=== PATIENT | female | born 1930 | race Caucasian/White ===

== ENCOUNTER 2016-07-09 18:47 | Inpatient (IN) | payer MEDICARE, OTHER ==
--- NOTE | ~2016-07-09 | DS ---
Discharge Summary [facility] [address] [place]. [address] NAME: LIZZETTE DE LA TORRE : [birth year] STATUS : DIS IN PAT#: [id number] AGE: 85 ADM/REG DATE : 07/09/16 MR#: [id number] REPORT SERV DATE: 07/12/16 DICTATED BY: EVER HERNÁNDEZ DATE: 07/11/16 REPORT STATUS : Draft TRANSCRIBED BY: MODL DATE: 07/11/16 ADMISSION DATE: 07/09/2016 DISCHARGE DATE: 07/11/2016 DISCHARGE DIAGNOSES: 1. Severe ileus, resolved. 2. Advanced dementia. 3. Elevated troponin, likely a type 2 phenomenon. CONSULTS: 1. Cardiology. 2. GI. 3. General Surgery. PROCEDURES: None. HOSPITAL COURSE: This is an 85-year-old lady with history of dementia who was presented to the hospital with severe ileus. For details, please refer to H and P by Dr. Hernandez. In summary, the patient was admitted for control of her abdominal pain and bloating. The patient had actually come from the [facility], and prior to coming to the ER, the patient was given multiple bowel regimen. Shortly after she was admitted to the hospital the patient actually had a bowel movement and with that, the patient had relief of her symptoms. The patient was slowly started on diet which she tolerated well. However, upon further investigation, the patient has quite advanced dementia and the ileus is something that she has chronically. The patient's family actually decided to take the patient home with hospice care which I thought was very reasonable. The patient is thus being discharged home with hospice. DISCHARGE MEDICATIONS: To be reconciled by hospice services. DISPOSITION: Home with hospice. Total of 25 minutes spent in coordinating this patient's discharge today. JOCELYN/CARROL Ever Hernández MD / [id number] CC: MD Radha Jensen M.D.
--- NOTE | ~2016-07-09 | CN ---
Consultation Report [facility] [address] [place]. [address] NAME: LIZZETTE DE LA TORRE : [birth year] STATUS : ADM IN [facility]#: [id number] AGE: 85 ADM/REG DATE : 07/09/16 MR#: [id number] REPORT SERV DATE: 07/10/16 DICTATED BY: SITA PRINCE DATE: 07/10/16 REPORT STATUS : Draft TRANSCRIBED BY: MODL DATE: 07/10/16 DATE OF CONSULTATION: This consultation is for Dr. Christian Segundo, and I am covering for him. HISTORY OF PRESENT ILLNESS: The patient is an 85-year-old woman who presents to the hospital with abdominal pain, abdominal distention with no bowel movement for a number of days. In the emergency room, she had a CT scan which showed a markedly dilated colon with the cecum measuring approximately 10 cm. Her abdomen was distended and extremely tight. She denied having any black stools or bright red blood in the stool. She denied having any vomiting, but did have some nausea. No hematemesis or coffee-grounds emesis. She denies any pyrosis or indigestion. Last night, she was started on neostigmine 0.5 mg subcutaneously twice a day, and since then, she has had two to three bowel movements, and her KUB this morning showed the Colon was much less dilated and was much improved. She has recently been in [place] for the same problem and was given some medicines there, we are not sure of which and she had bowel movements, but then when she was discharged, she has not had any bowel movement since then. She was seeing Dr. Enzo Reyes, however, she does not want to see him again, has seen Dr. Segundo once in the past during rounds on the weekend and liked him and wants to see him again and wants him to be her GI doctor. PAST MEDICAL HISTORY: Pertinent for coronary artery disease, status post stent placed in the 1998, hypertension, multiple episodes of ileus, and dementia. MEDICATIONS: Her medicines at home were Fosamax, Xanax 0.5 mg at bedtime, aspirin a day, Lipitor, diltiazem, Lasix, isosorbide, levothyroxine, lisinopril, Roxicodone, MiraLAX, potassium, and propranolol for an essential tremor. Those are her home medicines. Other medicines are as outlined on her MAR. ALLERGIES: SHE IS ALLERGIC TO SULFA AND ATIVAN. THE ATIVAN MAKES HER AGITATED AND WILD RATHER THAN SEDATED. SHE QUIT SMOKING TWO YEARS AGO. DOES NOT DRINK ANY ALCOHOL. FAMILY HISTORY: Pertinent for a mother with colon cancer. Her last colonoscopy was one to two years ago by Dr. Enzo Reyes. REVIEW OF SYSTEMS: Otherwise, unremarkable. PHYSICAL EXAMINATION: GENERAL: She is a well-developed, well-nourished woman, in no acute distress. VITAL SIGNS: Her temperature is 97.5, pulse 62, respirations 16, blood pressure is 111/53. HEENT: Unremarkable. LUNGS: Clear. HEART: Regular rate and rhythm. ABDOMEN: Showed normoactive bowel sounds and soft, with distention, soft and mildly tender diffusely. Consultation Report [address] [place]. [address] NAME: LIZZETTE DE LA TORRE : [birth year] STATUS : ADM IN [facility]#: [id number] AGE: 85 ADM/REG DATE : 07/09/16 MR#: [id number] REPORT SERV DATE: 07/10/16 DICTATED BY: SITA PRINCE DATE: 07/10/16 REPORT STATUS : Draft TRANSCRIBED BY: CARROL DATE: 07/10/16 LABORATORY DATA: Shows a white count of 10.6, hemoglobin of 12.3, hematocrit of 37.7, MCV 19.8, RDW 14.0, platelet count 251,000. Her PTT is 29.7, ProTime 14.1 with an INR of 1.1. Her sodium was 138, potassium of 3.9, chloride 98, CO2 of 29, BUN 13, creatinine 0.64, glucose 114, calcium 8.7, magnesium is 2.5. Total protein 5.8, albumin is 2.5, total bilirubin 0.4, alkaline phosphatase 64, ALT 30, AST 38. CPK was 36, CK-MB was 2.1. Troponin was 0.42. TSH was 4.63, normal high being 3.74. A CT scan done yesterday in the emergency room showed a prominent distention of the cecum measuring up to 10 cm. The rest of the colon is distended with gas and a large amount of stool. There was evidence of previous colon surgery in the rectosigmoid area, mild distention of the gallbladder without signs of acute cholecystitis, cystitis distended urinary bladder, atherosclerotic vascular disease, and a mild prominence of the biliary tree. KUB this morning showed residual contrast in the urinary ducts from the CT scan. No free air. No areas of significant mass effect and no significant bowel gas abnormalities. IMPRESSION: This is an 85-year-old woman who has an ileus which seems to be a chronic problem which is better since starting the neostigmine last night. We will continue the neostigmine. We will also start some Amitiza as she is taking some Roxicodone and other pain medicines and that may be giving her an opioid induced constipation as well as a chronic idiopathic constipation with ileus as noted as she has had multiple episodes of this. I agree with starting clear liquids and Dr. Segundo will return to see her in the morning. I want to thank you for allowing us to participate in the care of this nice lady. We look forward to work with you in the future. RS/MODL Sita Prince M.D. / [id number] CC: MD Radha Jensen M.D. David Collins, M.D.
--- NOTE | ~2016-07-09 | HP ---
History And Physical [place] [id number] [facility] [place]. [address] NAME: LIZZETTE DE LA TORRE : [birth year] STATUS : ADM IN [facility]#: [id number] AGE: 85 ADM/REG DATE : 07/09/16 MR#: [id number] REPORT SERV DATE: 07/10/16 DICTATED BY: SACHA BOCANEGRA DATE: 07/10/16 REPORT STATUS : Draft TRANSCRIBED BY: MODL DATE: 07/10/16 DATE OF ADMISSION: 07/09/2016 CHIEF COMPLAINT: This is an 85-year-old female presenting with abdominal pain and bloating. HISTORY OF PRESENT ILLNESS: The patient's history was obtained through careful interview with the patient and daughter coupled with review of [facility] medical records. The patient about 10 days ago began to develop extreme abdominal discomfort related to progressive abdominal distention. She was hospitalized just this last week at [facility], where she spent Monday through Monday hospitalized for constipation and "ileus." She had enema and bowel treatments and eventually had regular bowel movements. She was just discharged on the day prior to this admission, but continued to have abdominal pain at home. She has been "screaming out" in pain according to the family. A cramping, diffuse abdominal discomfort was noted with extreme abdominal distention. She has had nausea, 1 episode of vomiting. She has had burning with her urine and frequent incontinence that is new on onset. Over the last week, while at [facility], she had a low O2 sat, but no shortness of breath. There was also concern about a "heart attack" and we were all wondering if she had elevated troponins at [facility] (similar to what we see here). When she was discharged from the hospital yesterday, she was so weak that she apparently could not walk without assistance, which is a new problem over this last week. REVIEW OF SYSTEMS: Otherwise, a 14-point review of systems was obtained and was negative. PAST MEDICAL HISTORY: 1. Coronary artery disease, status post stent placement in 1998. 2. Dementia. 3. Hypertension. 4. Osteoarthritis particularly of the spine, seen by Dr. Veloz. 5. T12 compression fracture. 6. Severe ileus since 2015. 7. Negative echocardiogram in 2013. PAST SURGICAL HISTORY: 1. Hysterectomy. 2. Colon surgery more than 10 years ago. ALLERGIES: SULFA, ATIVAN. History And Physical [address] [place]. [address] NAME: LIZZETTE DE LA TORRE : [birth year] STATUS : ADM IN PAT#: [id number] AGE: 85 ADM/REG DATE : 07/09/16 MR#: [id number] REPORT SERV DATE: 07/10/16 DICTATED BY: SACHA BOCANEGRA DATE: 07/10/16 REPORT STATUS : Draft TRANSCRIBED BY: CARROL DATE: 07/10/16 SOCIAL HISTORY: Quit smoking about two years ago. No alcohol use. Has been living at [facility] in [facility]. She is a , has three children, two grandchildren, two great-grandchildren. FAMILY HISTORY: Alzheimer dementia and heart disease. CURRENT MEDICATIONS: Include Fosamax weekly, Xanax 0.5 mg p.o. at bedtime, aspirin 81 mg p.o. daily, Lipitor 20 mg p.o. daily, diltiazem extended release 300 mg p.o. daily, Lasix 20 mg p.o. daily, isosorbide mononitrate 30 mg p.o. daily, levothyroxine 88 mcg p.o. daily, lisinopril 10 mg p.o. daily, fish oil, Roxicodone 10 mg p.o. q.6 hours p.r.n., MiraLAX packet twice a day, potassium 10 mEq p.o. daily, propranolol 20 mg p.o. t.i.d. PHYSICAL EXAMINATION: VITAL SIGNS: Temperature 97.7, pulse 74, blood pressure 160/70, respiratory rate 16, O2 saturation 96% on room air. GENERAL: A pleasant, cooperative female. She is not in any particular distress at the time of my dictation, just uncomfortable. HEENT: Pupils equal, round, and reactive to light. No conjunctival pallor. No scleral icterus. Nares are patent. Oropharynx is clear of obstruction. Mildly dry mucous membranes. NECK: Trachea midline. No thyromegaly. LYMPH: No cervical lymphadenopathy. No supraclavicular lymphadenopathy. No inguinal lymphadenopathy. RESPIRATORY: Clear to auscultation at bases. No wheezes, rales, or rhonchi. Normal respiratory effort. CARDIOVASCULAR: Regular rate and rhythm. No murmurs, rubs, or gallops. No current extremity edema is appreciated. ABDOMEN: Massive distention of the abdomen with tympanic resonance percussed throughout. Tender throughout as well. Decreased bowel tones. Nonfocal. No guarding, no rebound. No hepatosplenomegaly. DERMATOLOGICAL: Warm and dry. EXTREMITIES: No pallor, no cyanosis. PSYCHIATRIC: Normal affect, very pleasant mood. The patient is alert. She has dementia and is chronically poorly oriented to time, location, and history. LABORATORY DATA: White blood count 10.5, hemoglobin 14, hematocrit 41, platelets 257. Sodium 135, potassium 4.0, chloride 93, bicarb 33, BUN 19, creatinine 0.78, glucose 131. Brain natriuretic peptide 647, troponin 0.56. INR 1.2. Ammonia level 11. Urinalysis shows no evidence of infection, but 5 hyaline casts. STUDIES: 1. CT scan of the abdomen shows massive ileus with 10 cm dilatation of the cecum and gallbladder distention, urinary bladder distention. 2. Chest x-ray by my own evaluation shows no acute abnormality, flattening of the diaphragms, and cardiomegaly are noted. ASSESSMENT AND PLAN: History And Physical [address] [address] NAME: LIZZETTE DE LA TORRE : [birth year] STATUS : ADM IN [facility]#: [id number] AGE: 85 ADM/REG DATE : 07/09/16 MR#: [id number] REPORT SERV DATE: 07/10/16 DICTATED BY: SACHA BOCANEGRA DATE: 07/10/16 REPORT STATUS : Draft TRANSCRIBED BY: CARROL DATE: 07/10/16 1. Severe ileus. The patient "failed" 5 days of hospitalization at [facility] last week and we will request records to review that hospital stay and consult Dr. Segundo ticketing clerk, who is considering endoscopic decompression?. Consulted Dr. Diaz, surgeon. 2. Urinary obstruction, place Joyce catheter and monitor. 3. Elevated troponin, but no chest pain. Obtain a Cardiology consult, does have a history of stent placement. Continue aspirin. No chest pain. Check EKG. 4. Elevated brain natriuretic peptide, but appears hypovolemic and dehydrated by exam. No edema and in fact the patient has tenting of the skin of the lower extremities. With a negative chest x-ray I would like to check an echocardiogram and monitor volume status closely. 5. Dementia. KPL/MODL Sacha Bocanegra M.D. / [id number] CC: MD Radha Jensen M.D. John Gwin Jr., M.D. David Collins, M.D.
--- NOTE | ~2016-07-09 | CN ---
Consultation Report [address] [place]. [address] NAME: LIZZETTE ALVARADO : [birth year] STATUS : ADM IN [facility]#: [id number] AGE: 85 ADM/REG DATE : 07/09/16 MR#: [id number] REPORT SERV DATE: 07/10/16 DICTATED BY: SHANE BENAVIDES DATE: 07/10/16 REPORT STATUS : Draft TRANSCRIBED BY: MODHarshil DATE: 07/10/16 CARDIOLOGY CONSULTATION DATE OF CONSULTATION: 07/10/2016 REQUESTING PHYSICIAN: JorgeL uis Hernandez M.D. REASON FOR CONSULTATION: Troponin elevation. HISTORY OF PRESENT ILLNESS: Ms. Alvarado is a pleasant 85-year-old woman, who presented with complaints of abdominal discomfort and abdominal distention. She went to [facility] and was admitted for this last week. There, she denied any chest pain or chest discomfort. Apparently after being there approximately a week, she was discharged. She quickly came back to this hospital with the same complaints. She continues to deny any chest pain or chest discomfort, but we were consulted because there was a mild troponin elevation of 0.56. She has underlying left bundle branch block. There was also noted at [facility]. She has had a normal echocardiogram in 2013, and saw Dr. Brandon Trujillo, at that time, due to some complaints of pedal edema. It was felt that this was secondary to dependent edema and her calcium channel meka was discontinued. The patient has CAD risk factors that include hypertension, and advanced age. PAST MEDICAL HISTORY: 1. Notable for coronary artery disease, status post stent placement in 1998, no subsequent coronary disease. 2. History of hypertension. 3. Osteoarthritis. 4. History of ileus. 5. Dementia. MEDICATIONS: Lasix, isoproterenol, lisinopril, and propranolol. FAMILY HISTORY: Noncontributory. Negative for premature coronary artery disease or sudden cardiac . SOCIAL HISTORY: Negative for tobacco or alcohol. REVIEW OF SYSTEMS: As noted above. All other systems were reviewed and negative blood. PHYSICAL EXAMINATION: VITAL SIGNS: Blood pressure of 160/70, pulse 74, and respirations 16. GENERAL: Well developed, well nourished. HEENT: No icterus. Good dentition. NECK: Supple. No masses or thyromegaly Consultation Report [address] [place]. [address] NAME: LIZZETTE ALVARADO : [birth year] STATUS : ADM IN PAT#: [id number] AGE: 85 ADM/REG DATE : 07/09/16 MR#: [id number] REPORT SERV DATE: 07/10/16 DICTATED BY: SHANE BENAVIDES DATE: 07/10/16 REPORT STATUS : Draft TRANSCRIBED BY: MODL DATE: 07/10/16 LUNGS: Breathing comfortably. No rales or wheezes. COR: Normal S1, S2. No S3 or S4. No murmurs, clicks, rubs. No JVD ABD: Hypoactive bowel sounds. EXT: No clubbing, cyanosis or edema. Peripheral pulses 2+/=bilaterally. SKIN: Warm and dry. No visible lesions. MS: Chest wall without deformity, no obvious clavicular fractures. NEURO/PSYCH: Oriented X3. No anxiety or depression. DIAGNOSTIC DATA: EKG shows sinus rhythm with left bundle branch block. No further interpretation, due to left bundle branch block. LABORATORY DATA: Notable for troponin of 0.5 on admission and 0.42 on the subsequent troponin value. IMPRESSION: No evidence for active coronary artery disease. The patient does have risk factors that include hypertension, and a known history of coronary artery disease in the past, with history of remote stent placement. She is not having any chest pain or chest discomfort. Troponin elevation is very minimal and essentially unchanged over two enzyme evaluations. This does not appear to be a myocardial infarction. She has no congestive heart failure symptoms. We will sign off for now, but we would be glad to see her again if she needs further evaluation from a Cardiology standpoint. Continue her current medications regarding her hypertension. /MODL Shane Benavides M.D. / [id number] CC: MD Radha Jensen M.D.
[2016-07-09 19:22] LABS: BASOPHILS 0.3 %; BASOPHILS ABSOLUTE 0.03 10/3/uL (0.0-0.16); EOSINOPHILS 0.8 %; EOSINOPHILS ABSOLUTE 0.08 10/3/uL (0.0-0.53); ER CBC TAT 0 Hrs 09 Mins; HEMATOCRIT 40.9 % (36.0-48.0); HEMOGLOBIN 13.5 g/dL (12.0-16.0); IMMATURE GRANULOCYTES 0.4 %; IMMATURE GRANULOCYTES ABSOLUTE 0.04 10/3/uL (0.0-0.11); LYMPHOCYTES 17.4 %; LYMPHOCYTES ABSOLUTE 1.83 10/3/uL (0.67-4.30); MEAN CORPUSCULAR HEMOGLOB 29.8 pg (26.0-34.0); MEAN CORPUSCULAR VOLUME 90.3 fL (80-100); MEAN PLATELET VOLUME 11.6 fL (9.2-13.0); MONOCYTES 12.3 %; MONOCYTES ABSOLUTE 1.29 10/3/uL (0.21-1.20); NEUTROPHILS 68.8 %; NEUTROPHILS ABSOLUTE 7.26 10/3/uL (2.02-8.40); PLATELET COUNT 257 10/3/uL (150-400); RED CELL COUNT 4.53 10/6/uL (4.0-5.6); WHITE BLOOD CELLS 10.5 10/3/uL (4.5-10.5)
[2016-07-09 19:23] LABS: MANUAL DIFF NO %
[2016-07-09 19:33] LABS: INTERNATIONAL NORMAL RATI 1.2 UNITS (-); PARTIAL THROMBO TIME 30.8 SEC (22.5-37.2); PROTIME (NOT ORD) 14.6 SEC (12.0-14.5)
[2016-07-09 19:37] LABS: BUN (BLOOD UREA NITROGEN) 19 MG/DL (6-23); CHLORIDE, SERUM 93 MMOL/L (96-112); CO2 (CARBON DIOXIDE) 33 MMOL/L (24-34); CREATININE 0.78 MG/DL (0.55-1.02); GFR AFRICAN AMERICAN 79 ML/MIN (>=60); GFR NON AFRICAN AMERICAN 68 ML/MIN (>=60); GLUCOSE, SERUM 131 MG/DL (60-99); SODIUM, SERUM 135 MMOL/L (135-148)
[2016-07-09 19:38] LABS: CHEST PAIN PROFILE TAT 0 Hrs 25 Mins; TROPONIN I 0.56 NG/ML (<0.05)
[2016-07-09 20:38] LABS: B NATRIURETIC PEPTIDE (BNP) 647.1 PG/ML (< 100.0)
[2016-07-09] MEDS ORDERED: FOSAMAX70 MG PO (22:09)
[2016-07-09] MEDS ORDERED: HALF81 PO (22:09)
[2016-07-09] MEDS ORDERED: X5 PO (22:09)
[2016-07-09] MEDS ORDERED: LIPITOR20 PO (22:09)
[2016-07-09] MEDS ORDERED: IMDUR30 PO (22:10)
[2016-07-09] MEDS ORDERED: L20 PO (22:10)
[2016-07-09] MEDS ORDERED: CARDCD300 PO (22:10)
[2016-07-09] MEDS ORDERED: ZESTRIL10 MG PO (22:11)
[2016-07-09] MEDS ORDERED: FISH-EPA1000 MG PO (22:11)
[2016-07-09] MEDS ORDERED: LEVOTHYROXIN88 MCG PO (22:11)
[2016-07-09] MEDS ORDERED: MIRALAX POWDER1 PKT PO (22:11)
[2016-07-09] MEDS ORDERED: I20 PO (22:12)
[2016-07-09] MEDS ORDERED: KDUR10 PO (22:12)
[2016-07-09] MEDS ORDERED: OXYCOD PO (22:13)
[2016-07-09 22:18] LABS: WBC (NOT ORDERED) (RFLEX) 0 (0-5)
[2016-07-09 22:30] LABS: ASCORBIC ACID (UR NOT ORDER) NEG (NEG); BILIRUBIN, URINE NEGATIVE (NEG); ER URINALYSIS TAT 0 Hrs 13 Mins; KETONE, URINE NEGATIVE (NEG); LEUKOCYTE ESTERASE(NOT OR NEG (NEG); NITRITE (URINE) NEG (NEG)
[2016-07-10 06:36] LABS: BASOPHILS 0.5 %; BASOPHILS ABSOLUTE 0.05 10/3/uL (0.0-0.16); EOSINOPHILS 1.2 %; EOSINOPHILS ABSOLUTE 0.13 10/3/uL (0.0-0.53); HEMATOCRIT 37.7 % (36.0-48.0); HEMOGLOBIN 12.3 g/dL (12.0-16.0); IMMATURE GRANULOCYTES 0.3 %; IMMATURE GRANULOCYTES ABSOLUTE 0.03 10/3/uL (0.0-0.11); LYMPHOCYTES 22.6 %; LYMPHOCYTES ABSOLUTE 2.39 10/3/uL (0.67-4.30); MEAN CORPUS HGB CONC 32.6 g/dL (32.0-36.0); MEAN CORPUSCULAR HEMOGLOB 29.6 pg (26.0-34.0); MEAN CORPUSCULAR VOLUME 90.8 fL (80-100); MEAN PLATELET VOLUME 11.2 fL (9.2-13.0); MONOCYTES ABSOLUTE 1.37 10/3/uL (0.21-1.20); NEUTROPHILS 62.4 %; NEUTROPHILS ABSOLUTE 6.59 10/3/uL (2.02-8.40); PLATELET COUNT 251 10/3/uL (150-400); RED CELL COUNT 4.15 10/6/uL (4.0-5.6); WHITE BLOOD CELLS 10.6 10/3/uL (4.5-10.5)
[2016-07-10 06:39] LABS: INTERNATIONAL NORMAL RATI 1.1 UNITS (-); PROTIME (NOT ORD) 14.1 SEC (12.0-14.5)
[2016-07-10 06:40] LABS: MANUAL DIFF NO %; PARTIAL THROMBO TIME 29.7 SEC (22.5-37.2)
[2016-07-10 07:01] LABS: A/G RATIO 0.8 (0.7-1.9); ALBUMIN 2.5 G/DL (3.5-5.0); ALKALINE PHOSPHATASE 64 U/L (45-117); BUN (BLOOD UREA NITROGEN) 13 MG/DL (6-23); CALCIUM, SERUM 8.7 MG/DL (8.5-10.4); CHLORIDE, SERUM 98 MMOL/L (96-112); CK-MB 2.1 NG/ML; CO2 (CARBON DIOXIDE) 29 MMOL/L (24-34); CPK 36 U/L (0-200); CREATININE 0.64 MG/DL (0.55-1.02); GFR AFRICAN AMERICAN 93 ML/MIN (>=60); GFR NON AFRICAN AMERICAN 80 ML/MIN (>=60); GLOBULIN 3.3 G/DL (2.5-4.1); GLUCOSE, SERUM 114 MG/DL (60-99); POTASSIUM, SERUM 3.9 MMOL/L (3.5-5.3); SGOT(AST) 38 U/L (5-40); SGPT(ALT) 30 U/L (5-65); SODIUM, SERUM 138 MMOL/L (135-148); TOTAL BILIRUBIN 0.4 MG/DL (0-1.2); TOTAL PROTEIN 5.8 G/DL (6.0-8.5); TROPONIN I 0.42 NG/ML (<0.05)
[2016-07-11 04:12] LABS: BASOPHILS 0.5 %; BASOPHILS ABSOLUTE 0.04 10/3/uL (0.0-0.16); EOSINOPHILS 1.5 %; EOSINOPHILS ABSOLUTE 0.13 10/3/uL (0.0-0.53); HEMATOCRIT 37.2 % (36.0-48.0); HEMOGLOBIN 12.2 g/dL (12.0-16.0); IMMATURE GRANULOCYTES 0.2 %; IMMATURE GRANULOCYTES ABSOLUTE 0.02 10/3/uL (0.0-0.11); LYMPHOCYTES 23.7 %; LYMPHOCYTES ABSOLUTE 2.07 10/3/uL (0.67-4.30); MANUAL DIFF NO %; MEAN CORPUS HGB CONC 32.8 g/dL (32.0-36.0); MEAN CORPUSCULAR HEMOGLOB 30.2 pg (26.0-34.0); MEAN CORPUSCULAR VOLUME 92.1 fL (80-100); MEAN PLATELET VOLUME 10.9 fL (9.2-13.0); MONOCYTES 12.1 %; MONOCYTES ABSOLUTE 1.06 10/3/uL (0.21-1.20); NEUTROPHILS ABSOLUTE 5.43 10/3/uL (2.02-8.40); PLATELET COUNT 262 10/3/uL (150-400); RED CELL COUNT 4.04 10/6/uL (4.0-5.6); WHITE BLOOD CELLS 8.8 10/3/uL (4.5-10.5)
[2016-07-11 04:21] LABS: BUN (BLOOD UREA NITROGEN) 14 MG/DL (6-23); CALCIUM, SERUM 9.1 MG/DL (8.5-10.4); CHLORIDE, SERUM 96 MMOL/L (96-112); CO2 (CARBON DIOXIDE) 30 MMOL/L (24-34); CREATININE 0.77 MG/DL (0.55-1.02); GFR AFRICAN AMERICAN 80 ML/MIN (>=60); GFR NON AFRICAN AMERICAN 69 ML/MIN (>=60); GLUCOSE, SERUM 106 MG/DL (60-99); POTASSIUM, SERUM 4.1 MMOL/L (3.5-5.3); SODIUM, SERUM 136 MMOL/L (135-148)
== END 2016-07-11 22:51 | disposition home or self-care (01) | DRG 390 ==
LOC: ER 18:47 → 4SO 22:55
PROVIDERS: Emergency Medicine; Hospitalist; Internal Medicine
DX: K56.7 Ileus, unspecified (principal); F03.90 Unspecified dementia, unspecified severity, without behavioral disturbance, psychotic disturbance, mood disturbance, and anxiety; N13.9 Obstructive and reflux uropathy, unspecified; E86.0 Dehydration; I25.10 Atherosclerotic heart disease of native coronary artery without angina pectoris; Z95.5 Presence of coronary angioplasty implant and graft; M19.91 Primary osteoarthritis, unspecified site; I10 Essential (primary) hypertension; Z88.2 Allergy status to sulfonamides; Z88.8 Allergy status to other drugs, medicaments and biological substances; Z87.891 Personal history of nicotine dependence; Z79.82 Long term (current) use of aspirin; K59.03 Drug induced constipation; T40.2X5A Adverse effect of other opioids, initial encounter; Z79.891 Long term (current) use of opiate analgesic; R33.9 Retention of urine, unspecified; Z90.49 Acquired absence of other specified parts of digestive tract; R53.1 Weakness
CPT/HCPCS: 71010; 74000; 74177; 80048; 80053; 81001; 82140; 82550; 82553; 83605; 83735; 83880; 84443; 84484; 85025; 85610; 85730; 93005; 96374; 99291; A9270-GY; J2405; J2710; Q9967

== ENCOUNTER 2016-09-06 13:50 | Inpatient (IN) | payer MEDICARE, OTHER ==
--- NOTE | ~2016-09-06 | DS ---
Discharge Summary [facility] [address] [place]. [address] NAME: LIZZETTE DE LA TORRE : [birth year] STATUS : DIS IN PAT#: [id number] AGE: 86 ADM/REG DATE : 09/07/16 MR#: [id number] REPORT SERV DATE: 09/09/16 DICTATED BY: DATE: REPORT STATUS : Draft TRANSCRIBED BY: MODL DATE: 09/08/16 ADMISSION DATE: 09/07/2016 DISCHARGE DATE: 09/08/2016 DISCHARGE DIAGNOSES: 1. Chest pain. 2. Elevated troponin. 3. Hypertension. 4. Hypothyroidism. 5. Anemia. 6. Nausea and vomiting. 7. Dementia. 8. History of constipation, ileus. 9. Benign essential tremors. 10.Bradycardia. PROCEDURES AND IMAGIN09/06/2016 portable chest x-ray showed linear density left lower lobe consistent with small focus of atelectasis. HOSPITAL COURSE: Please refer to Dr. Jodi Hernandez' initial H and P on 09/06/2016 for complete details regarding patient's admission. In brief, the patient was admitted by Dr. Hernandez for complaint of chest pain for an initial workup and management. The patient had chest pain for about 2 hours at the facility where she was doing rehab and was noted to be bradycardic in the 30s and 40s. Upon arrival in the ER, patient's heart rate was in the 50s. The patient has extensive comorbidities. During the patient's stay, her initial troponins were 0.05, which trended up yesterday to 1.17. Additional troponin done today was 14.7. EKGs with probable ME with demand ischemia. Family is not desirous of any interventional strategies due to patient's multiple comorbidities. Medical treatment is desired only. During the patient's stay, she has not exhibited any complaints of chest pain. The patient has had significant bradycardia in the 50s. Her Cardizem was initially held due to her bradycardia. She did then have episode of hypertension, and her Cardizem was restarted, but in a split dose, so that parameters could be written for holding her medication if her heart rate was less than 60. The patient is a DNR. The patient has a history of significant dementia but is able to answer questions as to her name and place but not time as well as her present pain status. The patient is cooperative with deep breathing and turning for assessment. Hypertension. The patient has been doing poorly with her p.o. fluid intake and has required 250 mL fluid bolus to maintain blood pressure greater than 100 systolically. Hypothyroid. The patient's TSH was found to be 26.3. The patient was on levothyroxine 88 mcg, and this has now been increased to levothyroxine 100 mcg. The patient does have some anemia with hemoglobin around 10.0, hematocrit 31.6. It is recommended the patient be discharged on iron and vitamin C. Her serum iron was 26, TIBC 27, ferritin is 39, and reticulocyte count is 734. Discharge Summary [place] [address] [place]. [address] NAME: LIZZETTE DE LA TORRE : [birth year] STATUS : DIS IN PAT#: [id number] AGE: 86 ADM/REG DATE : 09/07/16 MR#: [id number] REPORT SERV DATE: 09/09/16 DICTATED BY: DATE: REPORT STATUS : Draft TRANSCRIBED BY: MODL DATE: 09/08/16 Patient had episode of nausea and vomiting after p.r.n. dosing of hydralazine for hypertension. The patient was started on Pepcid and Mylanta for these, and no further doses were needed of her hydralazine once her Cardizem had been restarted. The patient has history of constipation with history of ileus. The patient is stable on her normal bowel regimen of senna, MiraLAX, and Florastor. The patient does use Percocet several times a day which probably contributes to her constipation. The patient does have benign essential tremors and her home dose of propranolol had been stopped due to her bradycardia. This is a very insignificant dose of 10 mg twice daily, and as this will affect her activities of daily living, this will be restarted. PHYSICAL EXAMINATION: GENERAL: The patient is sitting up in bed, states mild leg pain. States she has arthritis. No chest pain or shortness of breath. Vital Signs: Blood pressure 111/54, respirations 12, temp is 98.7, heart rate is 54, O2 saturation is 92% on room air. HEENT: Head is atraumatic, normocephalic. Pupils are equal, round, reactive to light. No xanthelasma. Sclerae are clear, nonicteric. Good dentition. NECK: Supple with no obvious thyromegaly or lymphadenopathy. Neck veins are flat. CARDIAC: In a regular rhythm with occasional PACs and PVCs. ABDOMEN: Soft and nontender with active bowel sounds in all four quadrants. Normal bowel habitus. No palpable organomegaly. EXTREMITIES: No significant edema, clubbing, or cyanosis. Dorsalis pedis and posterior tibial pulses are palpable bilaterally. LUNGS: With normal respiratory effort with occasional crackle in the left base. MUSCULOSKELETAL: Moves all extremities x4. The patient is ambulatory only with max assist of 2 persons and a walker. SKIN: Skin is warm and dry with normal color and turgor. NEUROPSYCH: The patient is alert and oriented to self and place. Is pleasant and cooperative. Cranial nerves 2 through 12 are grossly intact. Patient eats poorly. LABORATORY DATA: Diagnostics of Significance: TSH were 26.3. Troponin was 14.7. Hemoglobin is 9.5, hematocrit 28.6. BUN 21 and creatinine is 1.10. DISCHARGE MEDICATIONS: Aspirin 81 mg daily, Cardizem 120 mg twice daily hold for systolic blood pressure less than or equal to 100, Lexapro 10 mg daily, Synthroid 100 mcg daily, Leon-3 fatty acid 1200 mg daily, lactobacillus chew 1 tablet daily, MiraLAX one packet daily, senna 2 tablets daily, prednisone 5 mg daily, Tylenol 650 mg p.o. or p.r.n. for mild pain or temp greater than 101, Mylanta 30 mL q.4 hours p.r.n. for epigastric distress, Xanax 0.5 mg p.o. q.6 hours p.r.n. anxiety, docusate sodium 100 mg twice daily p.r.n. constipation, Zofran 4 mg p.o. sublingual every four hours p.r.n. nausea and vomiting, Percocet 1 tablet daily at bedtime and q.6 hours p.r.n. for pain, propranolol 10 mg twice daily for benign essential tremors. ALLERGIES: PATIENT IS ALLERGIC TO SULFA AND LORAZEPAM. DISCHARGE INSTRUCTIONS: The patient will be discharged with Hospice to facility. They will Discharge Summary [address] [place]. [address] NAME: LIZZETTE DE LA TORRE : [birth year] STATUS : DIS IN PAT#: [id number] AGE: 86 ADM/REG DATE : 09/07/16 MR#: [id number] REPORT SERV DATE: 09/09/16 DICTATED BY: DATE: REPORT STATUS : Draft TRANSCRIBED BY: MODL DATE: 09/08/16 be taking care of all medical needs. Approximately, 35 minutes has been spent coordinating discharge care of this patient including hybc-ur-lluf encounter and summarization of the discharge. JARED/CARROL Lor Slater NP / [id number] CC: Radha Taylor M.D.
--- NOTE | ~2016-09-06 | HP ---
History And Physical [place] [facility] [place]. [address] NAME: LIZZETTE DE LA TORRE : [birth year] STATUS : ADM Ashley PAT#: [id number] AGE: 86 ADM/REG DATE : 09/06/16 MR#: [id number] REPORT SERV DATE: 09/06/16 DICTATED BY: CHINO HERNANDEZ DATE: 09/06/16 REPORT STATUS : Draft TRANSCRIBED BY: CARROL DATE: 09/06/16 DATE OF ADMISSION: 09/06/2016 CHIEF COMPLAINT: Chest pain. HISTORY OF PRESENT ILLNESS: The patient is a very pleasant 86-year-old white female. She suffers from fairly advanced dementia. She lives in a fpc currently. She can walk with a walker with maximum assistance. She can stand, but has to have help with that also. She spends much of her time in bed and sitting in a chair at the fpc currently. She was there recently. She was transferred there from here after being admitted for a fairly significant episode of constipation and ileus. Today, she noted she had chest pain for about two hours and she was noted to be bradycardic in the 30s to 40s and was subsequently transferred to [facility], now she is in the high 50s as far as her pulse. Her chest pain is relieved. She does not have any shortness of breath. She has diminished appetite. She does not eat or drink very much, but she has not had any nausea, vomiting, and she is having daily bowel movements. She has not had any documented fevers. None of her medications have changed, but again, she is not really eating or drinking like she used to. PAST MEDICAL HISTORY: 1. CAD with history of remote PTCI in 1998. 2. Chronic left bundle-branch block. 3. Benign essential tremor. 4. Restless legs. 5. Dementia. 6. Hypertension. 7. Osteoarthritis. 8. T12 compression fracture. 9. Recurrent ileus with constipation. PAST SURGICAL HISTORY: She has had a hysterectomy and colon surgery more than 10 years ago for lysis of adhesions and hemorrhoidectomy. FAMILY HISTORY: Positive for heart disease. HOME MEDICATIONS: Reviewed and attached. SOCIAL HISTORY: She quit smoking about three years ago. Does not use alcohol. She currently lives in a fpc. She is a , has three children. REVIEW OF SYSTEMS: Full 10-point review of systems obtained. Pertinent positives mentioned in the HPI. PHYSICAL EXAMINATION: VITAL SIGNS: Current blood pressure 125/47, temperature 97.7, pulse 54, respiratory rate 14, sats are 96%. History And Physical [address] [address] NAME: LIZZETTE DE LA TORRE : [birth year] STATUS : ADM Ashley PAT#: [id number] AGE: 86 ADM/REG DATE : 09/06/16 MR#: [id number] REPORT SERV DATE: 09/06/16 DICTATED BY: CHINO HERNANDEZ DATE: 09/06/16 REPORT STATUS : Draft TRANSCRIBED BY: CARROL DATE: 09/06/16 GENERAL: A well-developed white female, elderly, in no apparent distress. HEENT: Normocephalic, atraumatic. Throat is clear. NECK: Supple. HEART: Regular rate and rhythm without murmurs, rubs, or gallops. LUNGS: Grossly clear with good symmetrical air entry. ABDOMEN: Soft, nondistended, nontender. Normal bowel sounds. EXTREMITIES: Warm and dry. Skin is intact. She has 2+ pulses at the feet. SKIN: Without rash or lesion. NEURO: Alert, oriented to person, place, and time. 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 Strength is 4/5 in all four extremities. She is generally weak, and she has a tremor present. LAB AND X-RAY: EKG shows an old left bundle with a rate in the 50s. CBC shows hemoglobin and hematocrit of 10 and 30, white count 9.4, platelets are 263. Coags are normal. Chemistry panel: Sodium 142, potassium 3.6, chloride 105, CO2 33, BUN and creatinine 26 and 0.8, glucose 110. Troponin 0.04. Magnesium 2.4. Chest x-ray is unchanged. She has some atelectasis in the left lower lobe. ASSESSMENT/PLAN: 1. Bradycardia, already improved, in the mid 50s. We will hold her Cardizem and Inderal. Her blood pressure is stable chest pain has resolved. She has an old left bundle on EKG. I am not sure how aggressive I would be with the workup anyway with her history of dementia. She is a DNR. I do not think I would pursue aggressive cardiac intervention. 2. Anemia. Her hemoglobin is down from previous. We will recheck in the morning. Hemoccult for stool and check some iron studies. 3. History of dementia. 4. History of hypertension. Again holding antihypertensives. 5. History of constipation. She is having regular daily bowel movements on a bowel regimen. 6. Code status. The patient is DNR. 7. Disposition. I may have Case Management see her as there are some disposition issues. Her day nurse is soon going to run out and she is going to need assistance with all of her activities, total care, and her daughter does not know if she can really do it without assistance. We will have the caseworker intake come and see the patient and the family and discuss what possible options there are. 8. Disposition pending above. LIZZETH/CARROL Chino Hernandez M.D. / [id number] History And Physical [address] [address] NAME: LIZZETTE DE LA TORRE : [birth year] STATUS : ADM Ashley PAT#: [id number] AGE: 86 ADM/REG DATE : 09/06/16 MR#: [id number] REPORT SERV DATE: 09/06/16 DICTATED BY: CHINO HERNANDEZ DATE: 09/06/16 REPORT STATUS : Draft TRANSCRIBED BY: CARROL DATE: 09/06/16 CC: Liam Broderick M.D.
[2016-09-06 12:41] LABS: BASOPHILS 0.3 %; BASOPHILS ABSOLUTE 0.03 10/3/uL (0.0-0.16); EOSINOPHILS ABSOLUTE 0.09 10/3/uL (0.0-0.53); ER CBC TAT 0 Hrs 05 Mins; HEMOGLOBIN 9.9 g/dL (12.0-16.0); IMMATURE GRANULOCYTES 0.5 %; IMMATURE GRANULOCYTES ABSOLUTE 0.05 10/3/uL (0.0-0.11); LYMPHOCYTES 23.8 %; LYMPHOCYTES ABSOLUTE 2.24 10/3/uL (0.67-4.30); MEAN CORPUS HGB CONC 32.6 g/dL (32.0-36.0); MEAN CORPUSCULAR VOLUME 92.1 fL (80-100); MEAN PLATELET VOLUME 9.9 fL (9.2-13.0); MONOCYTES 9.5 %; MONOCYTES ABSOLUTE 0.89 10/3/uL (0.21-1.20); NEUTROPHILS 64.9 %; NEUTROPHILS ABSOLUTE 6.11 10/3/uL (2.02-8.40); PLATELET COUNT 263 10/3/uL (150-400); RBC DISTRIBUTION WIDTH 15.5 % (12.0-16.0); WHITE BLOOD CELLS 9.4 10/3/uL (4.5-10.5)
[2016-09-06 12:42] LABS: HEMATOCRIT 30.4 % (36.0-48.0); MANUAL DIFF NO %
[2016-09-06 12:48] LABS: INTERNATIONAL NORMAL RATI 1.1 UNITS (-); PARTIAL THROMBO TIME 25.8 SEC (22.5-37.2); PROTIME (NOT ORD) 13.6 SEC (12.0-14.5)
[2016-09-06 12:59] LABS: CALCIUM, SERUM 9.1 MG/DL (8.5-10.4); CHEST PAIN PROFILE TAT 0 Hrs 23 Mins; CHLORIDE, SERUM 105 MMOL/L (96-112); CO2 (CARBON DIOXIDE) 33 MMOL/L (24-34); CREATININE 0.88 MG/DL (0.55-1.02); GFR AFRICAN AMERICAN 68 ML/MIN (>=60); GFR NON AFRICAN AMERICAN 59 ML/MIN (>=60); GLUCOSE, SERUM 110 MG/DL (60-99); POTASSIUM, SERUM 3.6 MMOL/L (3.5-5.3); SODIUM, SERUM 142 MMOL/L (135-148); TROPONIN I 0.04 NG/ML (<0.05)
[2016-09-06 13:00] LABS: BUN (BLOOD UREA NITROGEN) 26 MG/DL (6-23)
[~2016-09-06 13:50] MED LIST: CARDCD300 PO; FISH-EPA1000 MG PO; FOSAMAX70 MG PO; HALF81 PO; I20 PO; IMDUR30 PO; KDUR10 PO; L20 PO; LEVOTHYROXIN88 MCG PO; LIPITOR20 PO; MIRALAX POWDER1 PKT PO; OXYCOD PO; X5 PO; ZESTRIL10 MG PO
[2016-09-06] MEDS ORDERED: HALF81 PO (13:54)
[2016-09-06] MEDS ORDERED: ACIDOPHILU2 PO (13:54)
[2016-09-06] MEDS ORDERED: LEVOTHYROXIN88 MCG PO (13:58)
[2016-09-06] MEDS ORDERED: CARDCD300 PO (13:58)
[2016-09-06] MEDS ORDERED: LEXAPRO10 PO (13:58)
[2016-09-06] MEDS ORDERED: L20 PO (13:58)
[2016-09-06] MEDS ORDERED: PCET PO ×2 (13:59→14:04)
[2016-09-06] MEDS ORDERED: KDUR10 PO (14:01)
[2016-09-06] MEDS ORDERED: P5 PO (14:01)
[2016-09-06] MEDS ORDERED: MIRALAX POWDER1 PKT PO (14:01)
[2016-09-06] MEDS ORDERED: FISH OIL1200 MG PO (14:02)
[2016-09-06] MEDS ORDERED: I10 PO (14:02)
[2016-09-06] MEDS ORDERED: SENTAB PO (14:02)
[2016-09-06] MEDS ORDERED: X5 PO (14:03)
[2016-09-06] MEDS ORDERED: CENTRUM PO (14:07)
[2016-09-06 16:09] LABS: RETICULOCYTE COUNT 2.2 % (0.5-2.5); RETICULOCYTE COUNT ABSOLUTE 73.4 10/3/uL (20.2-119.8)
[2016-09-06 16:32] LABS: PHOSPHORUS, SERUM 4.2 MG/DL (2.5-4.5)
[2016-09-06 16:33] LABS: TROPONIN I 0.06 NG/ML (<0.05); ULTRASENSITIVE TSH 26.3 MCIU/ML (0.358-3.740)
[2016-09-07 05:03] LABS: BASOPHILS 0.4 %; BASOPHILS ABSOLUTE 0.03 10/3/uL (0.0-0.16); EOSINOPHILS 1.4 %; EOSINOPHILS ABSOLUTE 0.12 10/3/uL (0.0-0.53); HEMATOCRIT 31.6 % (36.0-48.0); IMMATURE GRANULOCYTES 0.5 %; IMMATURE GRANULOCYTES ABSOLUTE 0.04 10/3/uL (0.0-0.11); LYMPHOCYTES 38.6 %; MEAN CORPUS HGB CONC 31.6 g/dL (32.0-36.0); MEAN CORPUSCULAR HEMOGLOB 29.4 pg (26.0-34.0); MEAN CORPUSCULAR VOLUME 92.9 fL (80-100); MONOCYTES 7.8 %; MONOCYTES ABSOLUTE 0.65 10/3/uL (0.21-1.20); NEUTROPHILS 51.3 %; NEUTROPHILS ABSOLUTE 4.26 10/3/uL (2.02-8.40); PLATELET COUNT 260 10/3/uL (150-400); RBC DISTRIBUTION WIDTH 15.4 % (12.0-16.0); WHITE BLOOD CELLS 8.3 10/3/uL (4.5-10.5)
[2016-09-07 05:04] LABS: MANUAL DIFF NO %
[2016-09-07 05:18] LABS: CALCIUM, SERUM 8.2 MG/DL (8.5-10.4); CHLORIDE, SERUM 107 MMOL/L (96-112); CREATININE 0.71 MG/DL (0.55-1.02); GFR AFRICAN AMERICAN 88 ML/MIN (>=60); GFR NON AFRICAN AMERICAN 76 ML/MIN (>=60); POTASSIUM, SERUM 4.2 MMOL/L (3.5-5.3); SODIUM, SERUM 142 MMOL/L (135-148)
[2016-09-07 05:20] LABS: BUN (BLOOD UREA NITROGEN) 20 MG/DL (6-23); CO2 (CARBON DIOXIDE) 28 MMOL/L (24-34); GLUCOSE, SERUM 84 MG/DL (60-99); TROPONIN I 0.05 NG/ML (<0.05)
[2016-09-08 05:32] LABS: BASOPHILS 0.3 %; BASOPHILS ABSOLUTE 0.03 10/3/uL (0.0-0.16); EOSINOPHILS ABSOLUTE 0.09 10/3/uL (0.0-0.53); HEMATOCRIT 28.6 % (36.0-48.0); HEMOGLOBIN 9.5 g/dL (12.0-16.0); IMMATURE GRANULOCYTES 0.3 %; IMMATURE GRANULOCYTES ABSOLUTE 0.03 10/3/uL (0.0-0.11); LYMPHOCYTES 30.8 %; LYMPHOCYTES ABSOLUTE 2.82 10/3/uL (0.67-4.30); MEAN CORPUSCULAR HEMOGLOB 30.4 pg (26.0-34.0); MEAN CORPUSCULAR VOLUME 91.7 fL (80-100); MONOCYTES 8.8 %; MONOCYTES ABSOLUTE 0.81 10/3/uL (0.21-1.20); NEUTROPHILS 58.8 %; NEUTROPHILS ABSOLUTE 5.39 10/3/uL (2.02-8.40); PLATELET COUNT 241 10/3/uL (150-400); RBC DISTRIBUTION WIDTH 15.7 % (12.0-16.0); RED CELL COUNT 3.12 10/6/uL (4.0-5.6); WHITE BLOOD CELLS 9.2 10/3/uL (4.5-10.5)
[2016-09-08 05:36] LABS: MANUAL DIFF NO %; MEAN CORPUS HGB CONC 33.2 g/dL (32.0-36.0)
[2016-09-08 06:17] LABS: BUN (BLOOD UREA NITROGEN) 21 MG/DL (6-23); CALCIUM, SERUM 8.3 MG/DL (8.5-10.4); CHLORIDE, SERUM 105 MMOL/L (96-112); CO2 (CARBON DIOXIDE) 28 MMOL/L (24-34); FOLATE 19.9 NG/ML (>5.2); GFR AFRICAN AMERICAN 52 ML/MIN (>=60); GFR NON AFRICAN AMERICAN 45 ML/MIN (>=60); GLUCOSE, SERUM 86 MG/DL (60-99); POTASSIUM, SERUM 4.2 MMOL/L (3.5-5.3); SODIUM, SERUM 139 MMOL/L (135-148)
== END 2016-09-08 16:43 | disposition hospice, home (50) | DRG 282 ==
LOC: ER 13:50 → CDU1 14:12 → CDU2 17:34
PROVIDERS: Emergency Medicine; Internal Medicine; Nurse Practitioner Family
DX: I21.3 ST elevation (STEMI) myocardial infarction of unspecified site (principal); F03.90 Unspecified dementia, unspecified severity, without behavioral disturbance, psychotic disturbance, mood disturbance, and anxiety; R00.1 Bradycardia, unspecified; E86.0 Dehydration; Z51.5 Encounter for palliative care; I24.8 Other forms of acute ischemic heart disease; I10 Essential (primary) hypertension; G25.0 Essential tremor; K59.03 Drug induced constipation; T40.2X5A Adverse effect of other opioids, initial encounter; E03.9 Hypothyroidism, unspecified; D64.9 Anemia, unspecified; R39.2 Extrarenal uremia; I49.1 Atrial premature depolarization; I49.3 Ventricular premature depolarization; M19.90 Unspecified osteoarthritis, unspecified site; G25.81 Restless legs syndrome; I44.7 Left bundle-branch block, unspecified; I25.10 Atherosclerotic heart disease of native coronary artery without angina pectoris; Z79.82 Long term (current) use of aspirin; Z88.2 Allergy status to sulfonamides; Z79.891 Long term (current) use of opiate analgesic; Z90.710 Acquired absence of both cervix and uterus; Z66 Do not resuscitate
CPT/HCPCS: 36415; 71010; 80048; 82306; 82607; 82728; 82746; 83540; 83550; 83735; 84100; 84443; 84484; 85025; 85045; 85610; 85730; 86850; 86870; 86900; 86901; 93005; 99285; A9270-GY; J0360; J2405